=== PATIENT | female | born 1995 | race Caucasian/White ===

== ENCOUNTER 2017-01-04 10:08 | Emergency (ER) | payer OTHER ==
[2017-01-04 12:12] LABS: CALCIUM 9.4 mg/dL (8.5-10.1); CARBON DIOXIDE 29.8 mmol/L (21-32); CHLORIDE SERUM 105 mmol/L (98-107); CREATININE SERUM 0.7 mg/dL (0.6-1.0); GFR1 > 60 mL/min; GLUCOSE SERUM 79 mg/dL (74-106); SODIUM SERUM 140 mmol/L (136-145)
[2017-01-04 12:56] VITALS: BP 135/82
== END 2017-01-04 13:15 | disposition home or self-care (01) ==
LOC: ED 10:08
PROVIDERS: Emergency Medicine
DX: R51 Headache (principal); H53.8 Other visual disturbances; M25.512 Pain in left shoulder; Z79.899 Other long term (current) drug therapy
CPT/HCPCS: J0780; J1885

== ENCOUNTER 2017-08-03 05:08 | Emergency (ER) | payer OTHER ==
[2017-08-03 06:22] VITALS: BP 130/91
== END 2017-08-03 06:22 | disposition home or self-care (01) ==
LOC: ED 05:08
DX: J20.8 Acute bronchitis due to other specified organisms (principal)
CPT/HCPCS: J1885; Q0092

== ENCOUNTER 2017-11-13 11:14 | Emergency (ER) | payer OTHER ==
[~2017-11-13] VITALS: Ht 154.9 cm; Wt 71.7 kg
[2017-11-13 11:51] VITALS: Ht 154.9 cm; Wt 71.7 kg
[2017-11-13 13:24] VITALS: BP 123/72
== END 2017-11-13 13:24 | disposition home or self-care (01) ==
LOC: ED 11:14
DX: M54.2 Cervicalgia (principal)
CPT/HCPCS: J1885

== ENCOUNTER 2018-09-19 08:26 | Emergency (ER) | payer OTHER ==
[~2018-09-19] VITALS: Ht 152.4 cm; Wt 73.0 kg
[2018-09-19 08:38] VITALS: Ht 152.4 cm; Wt 73.0 kg
[2018-09-19 09:12] LABS: BASOPHIL % 0.6 % (0-2); PLATELET COUNT 237 x10^3mcL (130-400); RED CELL DISTRIBUTION WIDTH 13.6 % (11.5-14.5)
[2018-09-19 09:52] LABS: CALCIUM 9.5 mg/dL (8.5-10.1); CARBON DIOXIDE 30.1 mmol/L (21-32); CHLORIDE SERUM 104 mmol/L (98-107); CREATININE SERUM 0.8 mg/dL (0.6-1.0); GFR1 > 60 mL/min; GLUCOSE SERUM 89 mg/dL (74-106); POTASSIUM SERUM 4.3 mmol/L (3.5-5.1); SODIUM SERUM 140 mmol/L (136-145)
[2018-09-19 10:15] VITALS: BP 126/71
== END 2018-09-19 10:15 | disposition home or self-care (01) ==
LOC: ED 08:26
PROVIDERS: Emergency Medicine
DX: R51 Headache (principal); M79.602 Pain in left arm; H57.12 Ocular pain, left eye
CPT/HCPCS: 36415; J1200; J1885; J2765

== ENCOUNTER 2019-10-09 09:35 | Emergency (ER) | payer OTHER ==
[~2019-10-09] VITALS: Ht 149.9 cm; Wt 79.1 kg
[2019-10-09 09:49] VITALS: Ht 149.9 cm; Wt 79.1 kg
[2019-10-09 12:32] VITALS: BP 128/91
== END 2019-10-09 13:42 | disposition home or self-care (01) ==
LOC: ED 09:35
DX: J11.1 Influenza due to unidentified influenza virus with other respiratory manifestations (principal); F17.200 Nicotine dependence, unspecified, uncomplicated
CPT/HCPCS: 87804; 99406; Q0092

== ENCOUNTER 2020-03-16 08:42 | Emergency (ER) | payer OTHER, SELFPAY ==
[~2020-03-16] VITALS: Ht 162.6 cm; Wt 70.3 kg
[2020-03-16 08:53] VITALS: Ht 162.6 cm; Wt 70.3 kg
[2020-03-16 10:25] VITALS: BP 135/86
== END 2020-03-16 10:25 | disposition home or self-care (01) ==
LOC: ED 08:42
DX: F41.9 Anxiety disorder, unspecified (principal); K21.9 Gastro-esophageal reflux disease without esophagitis
CPT/HCPCS: Q0092

== ENCOUNTER 2020-05-01 10:38 | Emergency (ER) | payer OTHER, SELFPAY ==
[~2020-05-01] VITALS: Ht 149.9 cm; Wt 79.4 kg
[~2020-05-01 10:38] MED LIST: ACETAMINOPHEN-H1 TA1 PO
[2020-05-01 10:39] VITALS: BP 126/92; Ht 149.9 cm; Wt 79.4 kg
== END 2020-05-01 11:42 | disposition home or self-care (01) ==
LOC: ED 10:38
DX: U07.1 COVID-19 (principal); Z90.49 Acquired absence of other specified parts of digestive tract
CPT/HCPCS: U0003-CS